=== PATIENT | male | born 1965 | race Caucasian/White ===

== ENCOUNTER 2021-09-04 10:10 | Emergency (ER) | payer OTHER ==
[~2021-09-04] VITALS: Ht 166.4 cm; Wt 88.9 kg
[~2021-09-04 10:10] MED LIST: LORA-476 PO
--- NOTE | 2021-09-04 10:13 | NUR ---
Jhon cordon in [facility] - 09/04/21 at 1015 by MED[facility] pt LINDAA BLS to bed 05.
[2021-09-04 10:29] VITALS: BP 143/85
--- NOTE | 2021-09-04 11:42 | NUR ---
DR CARPENTER EVALUATING PATIENT AT BEDSIDE.
--- NOTE | 2021-09-04 12:04 | NUR ---
OSCAR SPECIMEN COLLECTED AND WALKED TO LAB AT THIS TIME.
--- NOTE | 2021-09-04 12:37 | NUR ---
LAB AT PATIENT BEDSIDE
[2021-09-04 12:44] LABS: BASOPHILS % (AUTO) 0.3 % (0.0-2.0); EOSINOPHILS # (AUTO) 0.2 K/uL (0-0.4); EOSINOPHILS % (AUTO) 1.4 % (0.0-4.0); HEMATOCRIT 43.4 % (36-52); HEMOGLOBIN 14.6 g/dL (12.0-18.0); LYMPHOCYTES # (AUTO) 1.8 K/uL (2.0-11.5); LYMPHOCYTES % (AUTO) 15.1 % (20.5-51.1); MEAN CORPUSCULAR HEMOGLOBIN 28 pg (27-31); MEAN CORPUSCULAR HGB CONC 34 g/dL (33-37); MEAN CORPUSCULAR VOLUME 82.4 fL (80-94); MONOCYTES # (AUTO) 1.4 K/uL (0.8-1.0); MONOCYTES % (AUTO) 11.2 % (1.7-9.3); NEUTROPHILS # (AUTO) 8.7 K/uL (1.8-7.7); PLATELET COUNT (AUTO) 276 K/uL (140-450); RED BLOOD CELL COUNT(AUTO) 5.27 MIL/uL (4.20-6.10); WHITE BLOOD COUNT (AUTO) 12.1 K/uL (4.8-10.8)
[2021-09-04 12:58] LABS: CARBON DIOXIDE 26.5 mmol/L (21-32); CREATININE 0.7 mg/dL (0.6-1.3); POTASSIUM 3.5 mmol/L (3.5-5.1); TOTAL BILIRUBIN 0.7 mg/dL (0.0-1.0)
--- NOTE | 2021-09-04 13:00 | NUR ---
DR. CARPENTER RE EVALUATING PATIENT AT BEDSIDE.
[2021-09-04 13:40] LABS: PROTHROMBIN TIME 11.2 secs (10.8-13.4)
[2021-09-04] MEDS ORDERED: NACL 0.9% 1,000 ML IV ONE (14:05)
[2021-09-04 16:42] LABS: APPEARANCE,URINE CLEAR (CLEAR); BILIRUBIN,URINE NEGATIVE (NEGATIVE); BLOOD, URINE TRACE-I (NEGATIVE); COLOR,URINE YELLOW (YELLOW); LEUKOCYTE ESTERASE ,URINE NEGATIVE (NEGATIVE); NITRITE, URINE NEGATIVE (NEGATIVE); PH,URINE 6.5 (5.0-9.0); UGLUCOSE NEGATIVE (NEGATIVE)
[2021-09-04 16:53] LABS: RBC,URINE 0-5 /HPF (0-5); WBC,URINE 0-5 /HPF (0-5)
--- NOTE | 2021-09-04 17:43 | NUR ---
PATIENT AWAKE IN BED, NO SIGNS OF DISTRESS NOTED AT THIS TIME. WILL CONTINUE TO MONITOR.
--- NOTE | 2021-09-04 18:15 | NUR ---
PATIENT PROVIDED W/ DINNER TRAY AND WATER AT BEDSIDE. ALL PATIENT NEEDS MET AT THIS TIME. WILL CONTINUE TO MONITOR.
--- NOTE | 2021-09-04 19:18 | NUR ---
The patient's care was reviewed and supervised by Emely Ritter RN.
--- NOTE | 2021-09-04 19:21 | NUR ---
Pt report given to ROSIE FROST. Transfer of care at this time.
--- NOTE | 2021-09-04 19:22 | NUR ---
REPORT RECEIVED FOR CONTINUITY OF CARE.
--- NOTE | 2021-09-04 21:06 | NUR ---
PATIENT AMBULATED TO RESTROOM.
--- NOTE | 2021-09-04 21:41 | NUR ---
PT MOVED TO BED 11.
--- NOTE | 2021-09-04 22:02 | NUR ---
PT WAS MOVED FROM BED 6 TO BED 11. PT AWAKE ALERT AND ORIENTED X4. BED LOCK AND LOW, SIDE RAILS UP. CALL LIGHT WITHIN REACH. PT PLACED ON MONITOR WITH VSS STABLE.
--- NOTE | 2021-09-05 00:53 | NUR ---
PATIENT MOVED TO BED 4
--- NOTE | 2021-09-05 02:06 | NUR ---
SPOKE TO [facility] AND GAVE PATIENT UPDATE.
--- NOTE | 2021-09-05 05:18 | NUR ---
Patient appears to be resting comfortably in bed- lights dimmed, eyes closed, and low fowlers. Vital Signs within normal limits at this time. Respirations even and unlabored. Safety measures are in place, attached to monitor and will continue to monitor patient.
--- NOTE | 2021-09-05 07:14 | NUR ---
Pt report given to Jessie VELEZ and Negra LIM. Transfer of care at this time.
--- NOTE | 2021-09-05 08:08 | NUR ---
Patient appears to be resting comfortably in bed. Vital Signs within normal limits. Respirations even and unlabored. FOOD TRAY WAS GIVEN. PATIENT EATING AT BEDSIDE.
[2021-09-05] MEDS ORDERED: predniSONE 20 MG TAB PO ONE (08:15)
[2021-09-05] MEDS ORDERED: ACETAMINOPHEN 325 MG TAB PO ONE (08:15)
[2021-09-05] MEDS ORDERED: CRUSHER, PILL MC ONE (08:20)
--- NOTE | 2021-09-05 09:00 | NUR ---
Note janaone in [facility] - 09/05/21 at 0914 by MEDR Patient will be admitted to care of molly tucker. Admited to telemetry. Will go to room 118. Belongings list completed. Report to estefania gamboa. telebox on pt, mt notified of pt arrival.
--- NOTE | 2021-09-05 10:13 | NUR ---
Patient does not wish to proceed with medical care recommended by ELE LAFLEUR. Patient given information related to possible complications, up to and including , which could occur as a result of leaving hospital at this time. Patient verbalizes understanding of risks involved leaving against medical advice. Patient has signed AMA form.
[2021-09-05 10:14] VITALS: BP 136/86
[2021-09-05] MEDS ORDERED: PRED20TA5 PO (10:41)
[2021-09-05] MEDS ORDERED: OINT1OIN48 TP (10:43)
--- NOTE | 2021-09-05 10:49 | NUR ---
DR MARLOW SENT [facility] TO [facility].
== END 2021-09-05 10:49 | disposition left against medical advice (07) ==
LOC: MED 10:10
DX: L40.8 Other psoriasis (principal); Z20.822 Contact with and (suspected) exposure to COVID-19
CPT/HCPCS: 36415; 71045; 80053; 81001; 85025; 85610; 85730; 87426; 93005; 96360; 96361; 99285; J7030; J7512